=== PATIENT | female | born 1945 | race Caucasian/White ===

== ENCOUNTER → 2016-06-02 | Outpatient (CLI) | payer OTHER | LOC: PCVCIMAG 09:41 | PROVIDERS: ATTEND Internal Medicine Cardiovascular Disease | DX: E78.00 Pure hypercholesterolemia, unspecified (principal); I65.29 Occlusion and stenosis of unspecified carotid artery; Z86.718 Personal history of other venous thrombosis and embolism | CPT/HCPCS: 80061; 93005; 93971; G0463 ==

== ENCOUNTER → 2018-09-07 | Outpatient (CLI) | payer OTHER ==
[~2018-09-07] MED LIST: REGADENOSON 0.4 MG/5 ML DISP.SYRIN. IV ONE
--- NOTE | 2018-09-07 16:25 | PCVCIMAG ---
APPROVED REPORT Study performed: 09/07/2018 11:33:09 EXAM: Comprehensive 2D, Doppler, and color-flow Echocardiogram Patient Location: Echo lab Status: routine BSA: 1.92 HR: 75 bpmBP: 140/80 mmHg Rhythm: NSR Other Information Study Quality: Adequate Risk Factors: Cardiac Risk Factors: Hyperlipidemia, HTN Indications History of Breast Cancer 2D Dimensions IVSd: 10.95 (7-11mm)LVOT Diam: 20.00 (18-24mm) LVDd: 43.19 mm PWd: 8.97 (7-11mm)Ascending Ao: 35.52 (22-36mm) LVDs: 29.53 (25-40mm) Left Atrium: 39.99 (27-40mm) Aortic Root: 30.96 mm LV Single Plane 4CH: 62.78 % LV Single Plane 2CH: 49.35 % Biplane EF: 57.8 % Volumes Left Atrial Volume (Systole) Single Plane 4CH: 23.72 mLSingle Plane 2CH: 22.05 mL LA ESV Index: 13.00 mL/m2 Aortic Valve AoV Peak Sebastián.: 1.21 m/s AO Peak Gr.: 5.87 mmHgLVOT Max P.64 mmHg LVOT Max V: 0.95 m/s DIXIE Vmax: 2.47 cm2 Mitral Valve E/A Ratio: 0.7 MV Decel. Time: 210.11 ms MV E Max Sebastián.: 0.66 m/s MV A Sebastián.: 0.91 m/s TDI E/Lateral E': 9.43E/Medial E': 9.43 Medial E' Sebastián.: 0.07 m/s Lateral E' Sebastián.: 0.07 m/s Pulmonary Valve PV Peak Gr.: 2.34 mmHg Pulmonary Vein P Vein S: 0.52 m/sP Vein A: 0.38 m/s P Vein D: 0.50 m/sP Vein A Dur.: 86.5 msec P Vein S/D Ratio: 1.04 Tricuspid Valve TR Peak Sebastián.: 2.38 m/s TR Peak Gr.: 22.63 mmHg Left Ventricle The left ventricle is normal size. There is normal LV segmental wall motion. There is normal left ventricular wall thickness. Left ventricular systolic function is normal. The left ventricular ejection fraction is within the normal range. LVEF is 60%. The left ventricular diastolic function is normal. Right Ventricle The right ventricle is normal size. The right ventricular systolic function is normal. Atria The left atrium size is normal. The right atrium size is normal. Aortic Valve The aortic valve is normal in structure. No aortic regurgitation is present. There is no aortic valvular stenosis. Mitral Valve The mitral valve is normal in structure. There is no mitral valve regurgitation noted. No evidence of mitral valve stenosis. Tricuspid Valve The tricuspid valve is normal in structure. Trace tricuspid regurgitation. Pulmonary artery pressure is 30mmHg. Pulmonic Valve The pulmonary valve is normal in structure. Trace pulmonic regurgitation. Great Vessels The aortic root is normal in size. IVC is normal in size and collapses >50% with inspiration. Pericardium There is no pericardial effusion. <Conclusion> The left ventricle is normal size. LVEF is 60%. The left ventricular diastolic function is normal. The right ventricle is normal size. The left atrium size is normal. The aortic valve is normal in structure. There is no aortic valvular stenosis. There is no mitral valve regurgitation noted. Trace tricuspid regurgitation. Pulmonary artery pressure is 30mmHg. The aortic root is normal in size. There is no pericardial effusion.
--- NOTE | 2018-09-07 16:49 | PCVCIMAG ---
EXAM: AORTOILIAC DUPLEX INDICATION: Peripheral arterial disease FINDINGS: AORTA: Suprarenal aorta measures maximum diameter of 2.4 cm. There is not a fusiform infrarenal aortic aneurysm. The infrarenal aorta measures maximum diameter of 1.8 cm. No aortic stenosis. RIGHT COMMON ILIAC ARTERY: Maximum diameter is 1.1 cm. No significant stenosis. RIGHT EXTERNAL ILIAC ARTERY: No significant stenosis. LEFT COMMON ILIAC ARTERY: Maximum diameter is 1.0 cm. No significant stenosis. LEFT EXTERNAL ILIAC ARTERY: No significant stenosis. IMPRESSION: No abdominal aortic aneurysm. No aortoiliac stenosis seen. LOC:[id number]
--- NOTE | 2018-09-07 16:50 | PCVCIMAG ---
EXAM: BILATERAL LOWER EXTREMITY ARTERIAL DUPLEX INDICATION: Peripheral Arterial Disease. Leg pain. FINDINGS: Right Leg: Satisfactory arterial waveforms throughout the common/profunda/superficial femoral, popliteal, anterior tibial, peroneal, and posterior tibial arteries. No flow limiting stenosis seen. Left Leg: Satisfactory arterial waveforms throughout the common/profunda/superficial femoral, popliteal, anterior tibial, peroneal, and posterior tibial arteries. No flow limiting stenosis seen. IMPRESSION: No flow limiting stenosis in the right lower extremity. No flow limiting stenosis in the left lower extremity. LOC:[id number]
--- NOTE | 2018-09-07 17:26 | PCVCIMAG ---
APPROVED REPORT Imaging Protocol: Rest Tc-99m/Stress Tc-99m 1 day Study performed: 09/07/2018 12:59:15 Indication: Dyspnea Patient Location: Out-Patient Stress Nurse: Zara Bradley RN, Geno Del Rosario RN IN Tech:Maria Teresa Wong [facility] Ht: 5 ft 4 in Wt: 192 lbs BSA: 1.92 m2 HR: 75 bpm BP: 143/78 mmHg BMI: 32.9 Rhythm: Normal Sinus Rhythm Medical History Medical History: Hyperlipidemia Medications: ASA, Pravachol Allergies: PCN Cardiac Risk Factors: Age Pretest Chest Pain Characteristics: No chest pain Exercise History: Sedentary Physical Disabilities: Knees Resting Data Rest SPECT myocardial perfusion imaging was performed in supine position 45 minutes following the intravenous injection of 10.3 mCi of Tc-99m Sestamibi. Time of rest injection: 1215 Date: 09/07/2018 Administration Route: IV Administration Site: Right AC Pharmacologic Stress Pharmacologic stress test was performed by injecting Regadenoson 0.4 mg IV push over 10-15 seconds immediately followed by the intravenous injection of 32.3 mCi of Tc-99m Sestamibi. Time of stress injection: 1330 Date: 09/07/2018 Administration Route: IV Administration Site: Right AC Gated Stress SPECT was performed 45 minutes after stress injection. The images were gated to evaluate regional wall motion and calculate left ventricular ejection fraction. Stress Test Details Stress Test: Pharmacologic stress testing performed using 0.4 mg of regadenoson per 5 mL given IV over 10 seconds. Reason for pharmacologic stress test: knee issues. HRMax Heart Rate (APMHR): 147 bpm Resting HR: 75 bpmTarget HR (85% APMHR): 124 bpm Max HR Achieved: 100 bpm % of APMHR: 68 Recovery HR: 93 bpm BP Resting BP: 143/78 mmHg Max BP: 160/70 mmHg Recovery BP: 149/68 mmHg ECG Resting ECG: Sinus Rhythm Stress ECG: Sinus Rhythm Recovery ECG: Sinus Rhythm Clinical Reason for Termination: Completed protocol Stress Symptoms: Abdominal discomfort, Dyspnea Symptoms resolved with caffeine. Stress ECG Conclusion ECG: Non-ischemic Study Quality Study: Good Study Data Post stress, the left ventricular ejection was 81%.. SSS: 0 SRS: 0 SDS: 0 TID = 0.87. Perfusion No evidence of stress induced ischemia or prior myocardial infarction. Wall Motion Normal left ventricular size and function with no regional wall motion abnormalities. Nuclear Conclusion No evidence of stress induced ischemia or prior myocardial infarction. Normal left ventricular size and function with no regional wall motion abnormalities. Post stress, the left ventricular ejection was 81%. No prior study available for comparison. Interpreted by: Rob Wells MD Electronically Approved: 09/07/2018 16:27:49 <Conclusion> ECG: Non-ischemic
== END | disposition home or self-care (01) ==
LOC: PCVCIMAG 09:56
PROVIDERS: ATTEND Internal Medicine Cardiovascular Disease
DX: M79.605 Pain in left leg (principal); M79.604 Pain in right leg; I73.9 Peripheral vascular disease, unspecified; R06.00 Dyspnea, unspecified
CPT/HCPCS: 78452; 93017; 93306; 93925; 93978; A9500; J2785

== ENCOUNTER → 2018-11-23 | Outpatient (CLI) | payer OTHER ==
--- NOTE | 2018-11-23 16:03 | PCVCIMAG ---
EXAM: VENOUS DUPLEX LEFT LEG INDICATION: Leg pain and swelling. FINDINGS: Left leg: No thrombus in the common arrangement femoral veins. There is nonocclusive chronic appearing thrombus in the upper popliteal vein versus chronic scarring. Calf veins are unremarkable where seen. 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 LOC:[id number]
== END | disposition home or self-care (01) ==
LOC: PCVCIMAG 15:41
PROVIDERS: ATTEND Podiatrist Foot & Ankle Surgery
DX: M79.605 Pain in left leg (principal)
CPT/HCPCS: 93971